=== PATIENT | male | born 1950 | race Caucasian/White ===

== ENCOUNTER 2019-09-29 08:34 | Emergency (ER) | payer OTHER ==
--- NOTE | 2019-09-29 09:23 | EDM.PDOC ---
ED HPI GENERAL MEDICAL PROBLEM - General Chief Complaint: Cardiovascular Problem Stated Complaint: SOB AND SWELLING OF FEEL AND LEGS Time Seen by Provider: 09/29/19 08:46 Source of Information: Reports: Patient, RN Notes Reviewed - History of Present Illness INITIAL COMMENTS - FREE TEXT/NARRATIVE: 69 yr old male with dyspnea, fluid retention. He has had worsening shortness of breath the last few weeks and especially the last few days. Has not seen his regular surgical training specialist for a year due to covid and canceled appointments. He does have hx of chronic renal failure, GFR only 13 when tested at clinic 6 wks ago. No fever, chills, chest pain. Not coughing any more than usual. Hx chronic a fib. on coumadin. - Related Data Allergies Allergy/AdvReac Type Severity Reaction Status Date / Time atorvastatin Allergy Severe Rash Verified 09/29/19 08:47 cyclosporine Allergy Severe Rash Verified 09/29/19 08:47 lisinopril Allergy Severe Cough Verified 09/29/19 08:47 rosuvastatin [From Crestor] Allergy Severe Rash Verified 09/29/19 08:47 Home Meds: Home Meds Allopurinol [Zyloprim] 100 mg PO DAILY 09/29/19 [History] Isosorbide Mononitrate [Imdur] 30 mg PO DAILY 09/29/19 [History] Losartan [Cozaar] 12.5 mg PO DAILY 09/29/19 [History] [place]-3 Fatty Acids [[place]-3] 1,200 mg PO BID 09/29/19 [History] RX: Furosemide 40 mg PO BID 09/29/19 [History] RX: Metoprolol Succinate 50 mg PO DAILY 09/29/19 [History] RX: Warfarin Sodium 5 mg PO DAILY 09/29/19 [History] RX: calcitrioL [Calcitriol] 0.25 mcg PO DAILY 09/29/19 [History] RX: hydrALAZINE [Apresoline] 25 mg PO TID 09/29/19 [History] Terazosin [Hytrin] 5 mg PO DAILY 09/29/19 [History] guaiFENesin [Guaifenesin] 600 mg PO BID 09/29/19 [History] Social & Family History - Tobacco Use Smoking Status *Q: Current Every Day Smoker Years of Tobacco use: 60 Packs/Tins Daily: 0.2 - Recreational Drug Use Recreational Drug Use: No ED ROS GENERAL - Review of Systems Review Of Systems: See Below Constitutional: Denies: Fever, Chills, Diaphoresis HEENT: Reports: No Symptoms Respiratory: Reports: Shortness of Breath. Denies: Pleuritic Chest Pain, Cough Cardiovascular: Denies: Chest Pain GI/Abdominal: Reports: Decreased Appetite. Denies: Abdominal Pain, Nausea, Vomiting Musculoskeletal: Denies: Shoulder Pain, Arm Pain Skin: Denies: Rash Neurological: Reports: Dizziness, Difficulty Walking, Weakness (mild generalized. ). Denies: Trouble Speaking ED EXAM, GENERAL - Physical Exam Exam: See Below General Appearance: Alert, No Apparent Distress (at rest) Eye Exam: Bilateral Eye: PERRL Throat/Mouth: Normal Inspection Respiratory/Chest: Respiratory Distress (mild tachypnea), Rales (mild L base). No: Rhonchi, Wheezing Cardiovascular: Irregularly Irregular GI/Abdominal: Soft, Non-Tender Extremities: Pedal Edema (moderate bilat) Neurological: Alert, Oriented, No Motor/Sensory Deficits Skin Exam: Warm, Dry, Normal Color Course - Vital Signs Last Recorded V/S: Last Vital Signs Temp 98.7 F 09/29/19 08:43 Pulse 68 09/29/19 08:43 Resp 21 H 09/29/19 08:43 BP 175/114 H 09/29/19 08:43 Pulse Ox 91 L 09/29/19 08:43 - Orders/Labs/Meds Orders: Active Orders 24 hr Category Date Time Status EKG 12 Lead [EK] Stat Ther 09/29/19 08:54 Ordered Labs: Laboratory Tests 09/29/19 09/29/19 09/29/19 Range/Units 09:15 09:15 09:15 WBC 6.81 (4.23-9.07) K/mm3 RBC 3.99 L (4.63-6.08) M/mm3 Hgb 12.5 L (13.7-17.5) gm/dl Hct 38.1 L (40.1-51.0) % MCV 95.5 H (79.0-92.2) fl MCH 31.3 (25.7-32.2) pg MCHC 32.8 (32.2-35.5) g/dl RDW Std Deviation 48.6 H (35.1-43.9) fL Plt Count 67 L (163-337) K/mm3 MPV 11.7 (9.4-12.3) fl Neut % (Auto) 74.0 H (34.0-67.9) % Lymph % (Auto) 11.2 L (21.8-53.1) % [place] % (Auto) 11.3 (5.3-12.2) % Eos % (Auto) 2.8 (0.8-7.0) Baso % (Auto) 0.6 (0.1-1.2) % Neut # (Auto) 5.04 (1.78-5.38) K/mm3 Lymph # (Auto) 0.76 L (1.32-3.57) K/mm3 [place] # (Auto) 0.77 (0.30-0.82) K/mm3 Eos # (Auto) 0.19 (0.04-0.54) K/mm3 Baso # (Auto) 0.04 (0.01-0.08) K/mm3 Manual Slide Review Abnormal smear PT (9.7-12.0) SECONDS INR Sodium 137 (136-145) mEq/L Potassium 3.5 (3.5-5.1) mEq/L Chloride 101 (98-107) mEq/L Carbon Dioxide 28 (21-32) mEq/L Anion Gap 11.5 (5-15) BUN 37 H (7-18) mg/dL Creatinine 4.3 H (0.7-1.3) mg/dL Est Cr Clr Drug Dosing 15.76 mL/min Estimated GFR (MDRD) 14 (>60) mL/min BUN/Creatinine Ratio 8.6 L (14-18) Glucose 102 (83-115) mg/dL Calcium 10.8 H (8.5-10.1) mg/dL Total Bilirubin 0.9 (0.2-1.0) mg/dL AST 25 (15-37) U/L ALT 28 (16-63) U/L Alkaline Phosphatase 152 H (46-116) U/L NT-Pro-B Natriuret Pep > 72502 H (0-125) pg/mL Total Protein 5.8 L (6.4-8.2) g/dl Albumin 2.6 L (3.4-5.0) g/dl Globulin 3.2 gm/dL Albumin/Globulin Ratio 0.8 L (1-2) SARS Virus RNA (PCR) (NEGATIVE) 09/29/19 09/29/19 Range/Units 09:15 10:00 WBC (4.23-9.07) K/mm3 RBC (4.63-6.08) M/mm3 Hgb (13.7-17.5) gm/dl Hct (40.1-51.0) % MCV (79.0-92.2) fl MCH (25.7-32.2) pg MCHC (32.2-35.5) g/dl RDW Std Deviation (35.1-43.9) fL Plt Count (163-337) K/mm3 MPV (9.4-12.3) fl Neut % (Auto) (34.0-67.9) % Lymph % (Auto) (21.8-53.1) % [place] % (Auto) (5.3-12.2) % Eos % (Auto) (0.8-7.0) Baso % (Auto) (0.1-1.2) % Neut # (Auto) (1.78-5.38) K/mm3 Lymph # (Auto) (1.32-3.57) K/mm3 [place] # (Auto) (0.30-0.82) K/mm3 Eos # (Auto) (0.04-0.54) K/mm3 Baso # (Auto) (0.01-0.08) K/mm3 Manual Slide Review PT 29.0 H (9.7-12.0) SECONDS INR 2.76 Sodium (136-145) mEq/L Potassium (3.5-5.1) mEq/L Chloride (98-107) mEq/L Carbon Dioxide (21-32) mEq/L Anion Gap (5-15) BUN (7-18) mg/dL Creatinine (0.7-1.3) mg/dL Est Cr Clr Drug Dosing mL/min Estimated GFR (MDRD) (>60) mL/min BUN/Creatinine Ratio (14-18) Glucose (83-115) mg/dL Calcium (8.5-10.1) mg/dL Total Bilirubin (0.2-1.0) mg/dL AST (15-37) U/L ALT (16-63) U/L Alkaline Phosphatase (46-116) U/L NT-Pro-B Natriuret Pep (0-125) pg/mL Total Protein (6.4-8.2) g/dl Albumin (3.4-5.0) g/dl Globulin gm/dL Albumin/Globulin Ratio (1-2) SARS Virus RNA (PCR) Negative (NEGATIVE) - Re-Assessments/Exams Free Text/Narrative Re-Assessment/Exam: 09/29/19 11:06. He has marked pul congestion on CXR, plus 2 to plus 3 peripheral leg edema, a lot of fluid retention with Creatnine today of 4.3, eGFR 14. Daughter did request transfer to [place] initially but they are on full diversion with ED waiting list so have made arrangements for transfer to [facility], direct admit for Hospitalist Dr Brand accepting provider. He will go by ground ambulance. Departure - Departure Time of Disposition: 10:40 Disposition: DC/Tfer to [facility] 02 Reason for Transfer *Q: Other Condition: Serious Clinical Impression: Pleural effusion, A-fib Renal failure Qualifiers: Acute renal failure type: unspecified Chronic kidney disease stage: unspecified stage Congestive heart failure Qualifiers: Heart failure type: combined systolic and diastolic Referrals: PCP,Not In Area [Primary Care Provider] - Forms: ED Department Discharge Sepsis Event Note (ED) - Evaluation Sepsis Screening Result: No Definite Risk - Focused Exam Vital Signs: Vital Signs Temp Pulse Resp BP Pulse Ox 09/29/19 08:43 98.7 F 68 21 H 175/114 H 91 L - My Orders Last 24 Hours: My Active Orders 09/29/19 08:54 EKG 12 Lead [EK] Stat - Assessment/Plan Last 24 Hours: My Active Orders 09/29/19 08:54 EKG 12 Lead [EK] Stat
--- NOTE | 2019-09-29 10:26 | CR ---
Chest: Portable view of the chest was obtained. Comparison: Previous chest x-ray of 03/13/12. Moderately large right-sided pleural effusion with adjacent atelectasis. Left lung is clear. Heart size is felt to be slightly enlarged. Upper mediastinum shows no acute finding. Bony structures are grossly intact. Impression: 1. Moderately large right-sided pleural effusion with adjacent right sided atelectasis. Diagnostic code #3 This report was dictated in MDT
== END 2019-09-29 12:33 ==
LOC: JD.ED 08:34
DX: I50.40 Unspecified combined systolic (congestive) and diastolic (congestive) heart failure (principal); N19 Unspecified kidney failure; I48.91 Unspecified atrial fibrillation; J90 Pleural effusion, not elsewhere classified; F17.210 Nicotine dependence, cigarettes, uncomplicated; Z20.828 Contact with and (suspected) exposure to other viral communicable diseases; Z88.8 Allergy status to other drugs, medicaments and biological substances; Z79.899 Other long term (current) drug therapy; Z79.01 Long term (current) use of anticoagulants
CPT/HCPCS: 36415; 71045; 71045-26; 80053; 83880; 85025; 85610; 93005; 93010; 99284; 99285-25; U0002

== ENCOUNTER 2020-06-04 02:33 | Emergency (ER) | payer SELFPAY ==
--- NOTE | 2020-06-04 04:22 | EDM.PDOC ---
ED HPI GENERAL MEDICAL PROBLEM - General Chief Complaint: Upper Extremity Injury/Pain Stated Complaint: LEFT ARM ISSUES DIALYSIS PT Time Seen by Provider: 06/04/20 03:58 Source of Information: Reports: Patient, Family History Limitations: Reports: No Limitations - History of Present Illness INITIAL COMMENTS - FREE TEXT/NARRATIVE: This is a 70-year-old male. About 3 weeks ago he had a shunt placed in his left upper arm. Apparently he awoke this morning and noted that the shunt was very swollen and he was concerned that he might have a blood clot. When he felt the shunt making a vibrating sensation then he thought this was incorrect so he comes to the clinic for evaluation. Since he got here he says the shunt has reduced back down to normal size. He denies any other acute symptoms. He is a stage III kidney insufficiency and he has dialysis 3 times a week and to have a port in his right anterior chest. He denies any fever or chills he denies any other acute symptoms. Generalized Pain Score (Numeric/FACES): 2 - Related Data Allergies Allergy/AdvReac Type Severity Reaction Status Date / Time atorvastatin Allergy Severe Rash Verified 06/04/20 02:54 cyclosporine Allergy Severe Rash Verified 06/04/20 02:54 lisinopril Allergy Severe Cough Verified 06/04/20 02:54 rosuvastatin [From Crestor] Allergy Severe Rash Verified 06/04/20 02:54 Home Meds: Home Meds Furosemide 40 mg PO BID 09/29/19 [History] Isosorbide Mononitrate [Imdur] 30 mg PO DAILY 09/29/19 [History] Losartan [Cozaar] 12.5 mg PO DAILY 09/29/19 [History] Metoprolol Succinate 50 mg PO DAILY 09/29/19 [History] [place]-3 Fatty Acids [[place]-3] 1,200 mg PO BID 09/29/19 [History] Terazosin [Hytrin] 5 mg PO DAILY 09/29/19 [History] Warfarin Sodium 5 mg PO DAILY 09/29/19 [History] allopurinoL [Zyloprim] 100 mg PO DAILY 09/29/19 [History] calcitrioL [Calcitriol] 0.25 mcg PO DAILY 09/29/19 [History] hydrALAZINE [Apresoline] 25 mg PO TID 09/29/19 [History] Past Medical History Cardiovascular History: Reports: Afib, Other (See Below) Other Cardiovascular History: "leaky valves" Genitourinary History: Reports: Acute Renal Failure, Dialysis - Infectious Disease History Infectious Disease History: Reports: Measles Social & Family History - Family History Family Medical History: No Pertinent Family History - Tobacco Use Tobacco Use Status *Q: Former Tobacco User Used Tobacco, but Quit: Yes Month/Year Tobacco Last Used: 12/2019 - Caffeine Use Caffeine Use: Reports: Coffee, Soda Caffeine Use Comment: occasionally - Recreational Drug Use Recreational Drug Use: No Review of Systems - Review of Systems Review Of Systems: See Below Constitutional: Denies: Fever Eyes: Reports: No Symptoms Ears: Reports: No Symptoms Nose: Reports: No Symptoms Mouth/Throat: Reports: No Symptoms Respiratory: Denies: Shortness of Breath, Cough Cardiovascular: Denies: Chest Pain GI/Abdominal: Denies: Abdominal Pain Genitourinary: Reports: No Symptoms Musculoskeletal: Reports: Other (Generalized soreness and achiness) Skin: Reports: Other (Shunt in the left upper arm) Neurological: Reports: No Symptoms Psychiatric: Reports: No Symptoms ED EXAM, GENERAL - Physical Exam Exam: See Below Exam Limited By: No Limitations General Appearance: Alert, WD/WN, No Apparent Distress Eye Exam: Bilateral Eye: Normal Inspection Ears: Normal External Exam Throat/Mouth: Normal Lips, Normal Voice, No Airway Compromise Head: Normocephalic Neck: Supple Respiratory/Chest: No Respiratory Distress Back Exam: Decreased Range of Motion Extremities: Normal Range of Motion, Other (The shunt in his left upper arm appears to be normal with good healing and good healing of the incision, you can feel a thrill in the shunt.) Neurological: Alert, Oriented Psychiatric: Normal Affect, Normal Mood Skin Exam: Warm, Dry Course - Vital Signs Last Recorded V/S: Last Vital Signs Temp 98.1 F 06/04/20 02:49 Pulse 62 06/04/20 02:49 Resp 20 06/04/20 02:49 BP 135/63 06/04/20 02:49 Pulse Ox 93 L 06/04/20 02:49 - Re-Assessments/Exams Free Text/Narrative Re-Assessment/Exam: 06/04/20 04:20 Reassure the patient and the family that the thrill there feeling is normal and you want to be able to feel that in his shunt and if you do not feel the thrill than that is usually when he gets clotted up so his shunt is functioning. They are satisfied with this. Departure - Departure Time of Disposition: 04:20 Disposition: Home, Self-Care 01 Condition: Fair Clinical Impression: Presence of arteriovenous dialysis shunt - Discharge Information *PRESCRIPTION DRUG MONITORING PROGRAM REVIEWED*: Not Applicable *COPY OF PRESCRIPTION DRUG MONITORING REPORT IN PATIENT GREG: Not Applicable Referrals: Kervin Corcoran MD [Primary Care Provider] - Additional Instructions: Continue with your dialysis 3 times a week as before, check with your doctor regarding this shunt this coming week, if you do not feel that thrill or tremor in the shunt when you put your fingers on it gently then you need to be seen by your doctor and as long as you feel that little tremor or thrill then your shunt is functioning properly, return to the ER if needed Sepsis Event Note (ED) - Evaluation Sepsis Screening Result: No Definite Risk - Focused Exam Vital Signs: Vital Signs Temp Pulse Resp BP Pulse Ox 06/04/20 02:49 98.1 F 62 20 135/63 93 L
== END 2020-06-04 04:32 | disposition home or self-care (01) ==
LOC: JD.ED 02:33
DX: Z45.2 Encounter for adjustment and management of vascular access device (principal); I48.91 Unspecified atrial fibrillation; Z79.01 Long term (current) use of anticoagulants; Z79.899 Other long term (current) drug therapy; Z87.891 Personal history of nicotine dependence; Z88.8 Allergy status to other drugs, medicaments and biological substances
CPT/HCPCS: 99282; 99283

== ENCOUNTER 2020-07-12 12:11 | Emergency (ER) | payer OTHER ==
--- NOTE | 2020-07-12 12:24 | EDM.PDOC ---
ED HPI GENERAL MEDICAL PROBLEM - General Chief Complaint: General Stated Complaint: [facility] Time Seen by Provider: 07/12/20 12:22 - History of Present Illness INITIAL COMMENTS - FREE TEXT/NARRATIVE: 70-year-old male presents the emergency room with poor appetite no intake other than a little bit of soup last night. Home health nurse thought his blood pressure was too low to continue watch his any longer. is concerned the patient is dehydrated. Patient has end-stage renal disease he is on routine hemodialysis. He really does not have any pain he is just not eating or drinking is awfully weak at this point. Patient has dialysis 3 times a week had a yesterday and is scheduled again to have it tomorrow. He has not had any fevers or chills just is tired and lethargic. Abdomen Pain Score (Numeric/FACES): 4 - Related Data Allergies Allergy/AdvReac Type Severity Reaction Status Date / Time atorvastatin Allergy Intermediate Rash Verified 07/12/20 15:06 cyclosporine Allergy Intermediate Rash Verified 07/12/20 15:06 rosuvastatin [From Crestor] Allergy Intermediate Rash Verified 07/12/20 15:06 lisinopril AdvReac Mild Cough Verified 07/12/20 15:06 Home Meds: Home Meds Furosemide 40 mg PO BID 09/29/19 [History] Metoprolol Succinate 12.5 mg PO DAILY 09/29/19 [History] [place]-3 Fatty Acids [[place]-3] 1,200 mg PO BID 09/29/19 [History] Warfarin Sodium 2 mg PO ASDIRECTED 09/29/19 [History] allopurinoL [Zyloprim] 100 mg PO DAILY 09/29/19 [History] calcitrioL [Calcitriol] 0.25 mcg PO DAILY 09/29/19 [History] Acetaminophen [Tylenol] 650 mg PO Q6H PRN 07/12/20 [History] Amiodarone [Cordarone] 200 mg PO DAILY 07/12/20 [History] Aspirin [Aspirin EC] 81 mg PO DAILY 07/12/20 [History] Biotin/FA/Vit C/Vit B Complex [Nephrocaps] 1 mg PO DAILY 07/12/20 [History] Bumetanide [Bumex] 2 mg PO DAILY 07/12/20 [History] Calcium Acetate 667 mg PO TID 07/12/20 [History] Calcium Carbonate 500 mg PO Q4H PRN 07/12/20 [History] Cholecalciferol (Vitamin D3) [Vitamin D3] 25 mcg PO MOWEFR 07/12/20 [History] Melatonin 10 mg PO BEDTIME 07/12/20 [History] Midodrine 20 mg PO TUTHSA 07/12/20 [History] Pravastatin [Pravachol] 40 mg PO BEDTIME 07/12/20 [History] Sertraline [Zoloft] 100 mg PO DAILY 07/12/20 [History] Tamsulosin HCl 0.4 mg PO DAILY 07/12/20 [History] Warfarin [Coumadin] 1 mg PO ASDIRECTED 07/12/20 [History] ondansetron HCL [Zofran] 4 mg PO Q4H PRN 07/12/20 [History] rOPINIRole [Requip] 1 mg PO BEDTIME 07/12/20 [History] Past Medical History Cardiovascular History: Reports: Afib, Other (See Below) Other Cardiovascular History: "leaky valves" Genitourinary History: Reports: Acute Renal Failure, Dialysis - Infectious Disease History Infectious Disease History: Reports: Measles Social & Family History - Family History Family Medical History: No Pertinent Family History - Caffeine Use Caffeine Use: Reports: Coffee, Soda Caffeine Use Comment: occasionally ED ROS GENERAL - Review of Systems Review Of Systems: See Below Constitutional: Denies: Fever, Chills HEENT: Reports: No Symptoms Respiratory: Reports: No Symptoms Cardiovascular: Reports: No Symptoms GI/Abdominal: Reports: No Symptoms : Reports: Other (He does not make any urine) Hematologic/Lymphatic: Reports: Easy Bruising ED EXAM, GENERAL - Physical Exam Exam: See Below Exam Limited By: No Limitations General Appearance: Lethargic (He will wake up and answer questions appropriately but not for very long) Ears: Normal External Exam, Normal Canal, Hearing Grossly Normal, Normal TMs Nose: Normal Inspection, Normal Mucosa, No Blood Throat/Mouth: Normal Lips, Normal Oropharynx, Other (Semidry mucosa). No: Normal Teeth (He does not have dentures in place at this time) Head: Atraumatic, Normocephalic Neck: Normal Inspection, Supple, Non-Tender, Full Range of Motion. No: Lymph adenopathy (L), Lymphadenopathy (R) Respiratory/Chest: No Respiratory Distress, Lungs Clear, Normal Breath Sounds Cardiovascular: No Murmur, Irregularly Irregular GI/Abdominal: Normal Bowel Sounds, Soft, Non-Tender, Other (Reexamine his abdomen after reviewing his labs and he does not have any abdominal pain). No: Guarding, Rigid, Rebound, Tender Extremities: Other (Chronic edema this is normal for him skin is dry) Skin Exam: Dry #1 Interpretation EKG Date: 07/12/20 Rhythm: A-Fib (Probable A. fib) [place]: Normal P-Wave: Absent QRS: Other (Low voltage extremity leads) ST-T: Other (Verted T waves lateral leads) QT: Normal Comparison: No Change (No significant change from 09/29/2019 that study had 2 PVCs the study does not show PVCs) EKG Interpretation Comments: Abnormal EKG Course - Vital Signs Last Recorded V/S: Last Vital Signs Temp 36.2 C 07/12/20 12:18 Pulse 64 07/12/20 12:18 Resp 14 07/12/20 12:18 BP 71/46 L 07/12/20 12:18 Pulse Ox 69 L 07/12/20 12:18 - Orders/Labs/Meds Orders: Active Orders 24 hr Category Date Time Status EKG Documentation Completion [RC] STAT Care 07/12/20 12:41 Active CULTURE BLOOD [BC] Stat Lab 07/12/20 13:01 Received CULTURE BLOOD [BC] Stat Lab 07/12/20 13:15 Received REFLEX LACTIC ACID YES OR NO [CHEM] Routine Lab 07/12/20 14:07 Received Sodium Chloride 0.9% [Normal Saline] 1,000 ml Med 07/12/20 14:30 Active IV ASDIRECTED Blood Culture x2 Reflex Set [OM.PC] Stat Oth 07/12/20 12:41 Ordered Medication Orders Sodium Chloride (Normal Saline) 1,000 mls @ 100 mls/hr IV ASDIRECTED SANDI Last Admin: 07/12/20 14:32 Dose: 100 mls/hr Documented by: SHENA Labs: Laboratory Tests 07/12/20 07/12/20 07/12/20 Range/Units 13:01 13:01 13:01 WBC 9.87 H (4.23-9.07) K/mm3 RBC 4.12 L (4.63-6.08) M/mm3 Hgb 11.9 L (13.7-17.5) gm/dl Hct 39.8 L (40.1-51.0) % MCV 96.6 H (79.0-92.2) fl MCH 28.9 (25.7-32.2) pg MCHC 29.9 L (32.2-35.5) g/dl RDW Std Deviation 89.4 H (35.1-43.9) fL Plt Count 74 L (163-337) K/mm3 MPV 11.6 (9.4-12.3) fl Neut % (Auto) 77.2 H (34.0-67.9) % Lymph % (Auto) 9.0 L (21.8-53.1) % [place] % (Auto) 11.9 (5.3-12.2) % Eos % (Auto) 0.1 L (0.8-7.0) Baso % (Auto) 0.2 (0.1-1.2) % Neut # (Auto) 7.62 H (1.78-5.38) K/mm3 Lymph # (Auto) 0.89 L (1.32-3.57) K/mm3 [place] # (Auto) 1.17 H (0.30-0.82) K/mm3 Eos # (Auto) 0.01 L (0.04-0.54) K/mm3 Baso # (Auto) 0.02 (0.01-0.08) K/mm3 Manual Slide Review Abnormal smear PT (9.7-12.0) SECONDS INR Sodium 139 (136-145) mEq/L Potassium 4.2 (3.5-5.1) mEq/L Chloride 99 (98-107) mEq/L Carbon Dioxide 24 (21-32) mEq/L Anion Gap 20.2 H (5-15) BUN 35 H (7-18) mg/dL Creatinine 4.2 H (0.7-1.3) mg/dL Est Cr Clr Drug Dosing 16.42 mL/min Estimated GFR (MDRD) 14 (>60) mL/min BUN/Creatinine Ratio 8.3 L (14-18) Glucose 76 (70-99) mg/dL Lactic Acid (0.4-2.0) mmol/L Calcium 8.6 D (8.5-10.1) mg/dL Total Bilirubin 4.2 H (0.2-1.0) mg/dL AST 1122 H (15-37) U/L ALT 849 H (16-63) U/L Alkaline Phosphatase 401 H (46-116) U/L Troponin I 0.169 H* (0.00-0.056) ng/mL NT-Pro-B Natriuret Pep 00555 H (0-125) pg/mL Total Protein 5.8 L (6.4-8.2) g/dl Albumin 2.8 L (3.4-5.0) g/dl Globulin 3.0 gm/dL Albumin/Globulin Ratio 0.9 L (1-2) SARS-CoV-2 RNA (MANUEL) (NEGATIVE) 07/12/20 07/12/20 07/12/20 Range/Units 13:01 13:23 14:35 WBC (4.23-9.07) K/mm3 RBC (4.63-6.08) M/mm3 Hgb (13.7-17.5) gm/dl Hct (40.1-51.0) % MCV (79.0-92.2) fl MCH (25.7-32.2) pg MCHC (32.2-35.5) g/dl RDW Std Deviation (35.1-43.9) fL Plt Count (163-337) K/mm3 MPV (9.4-12.3) fl Neut % (Auto) (34.0-67.9) % Lymph % (Auto) (21.8-53.1) % [place] % (Auto) (5.3-12.2) % Eos % (Auto) (0.8-7.0) Baso % (Auto) (0.1-1.2) % Neut # (Auto) (1.78-5.38) K/mm3 Lymph # (Auto) (1.32-3.57) K/mm3 [place] # (Auto) (0.30-0.82) K/mm3 Eos # (Auto) (0.04-0.54) K/mm3 Baso # (Auto) (0.01-0.08) K/mm3 Manual Slide Review PT 27.7 H (9.7-12.0) SECONDS INR 2.64 Sodium (136-145) mEq/L Potassium (3.5-5.1) mEq/L Chloride (98-107) mEq/L Carbon Dioxide (21-32) mEq/L Anion Gap (5-15) BUN (7-18) mg/dL Creatinine (0.7-1.3) mg/dL Est Cr Clr Drug Dosing mL/min Estimated GFR (MDRD) (>60) mL/min BUN/Creatinine Ratio (14-18) Glucose (70-99) mg/dL Lactic Acid 6.6 H* (0.4-2.0) mmol/L Calcium (8.5-10.1) mg/dL Total Bilirubin (0.2-1.0) mg/dL AST (15-37) U/L ALT (16-63) U/L Alkaline Phosphatase (46-116) U/L Troponin I (0.00-0.056) ng/mL NT-Pro-B Natriuret Pep (0-125) pg/mL Total Protein (6.4-8.2) g/dl Albumin (3.4-5.0) g/dl Globulin gm/dL Albumin/Globulin Ratio (1-2) SARS-CoV-2 RNA (MANUEL) Negative (NEGATIVE) Meds: Medications Generic Name Dose Route Start Last Admin Trade Name Freq PRN Reason Stop Dose Admin Sodium Chloride 1,000 mls @ 100 mls/hr 07/12/20 14:30 07/12/20 14:32 Normal Saline IV 100 mls/hr ASDIRECTED SANDI Administration Discontinued Medications Generic Name Dose Route Start Last Admin Trade Name Freq PRN Reason Stop Dose Admin Sodium Chloride 500 mls @ 500 mls/hr 07/12/20 14:41 Normal Saline IV 07/12/20 15:40 .BOLUS ONE Cefepime HCl 1 gm/ Premix 50 mls @ 100 mls/hr 07/12/20 14:45 07/12/20 15:18 IV 07/12/20 15:14 100 mls/hr ONETIME ONE Administration Vancomycin HCl 1 gm/ Sodium 250 mls @ 250 mls/hr 07/12/20 14:45 Chloride IV 07/12/20 15:44 ONETIME ONE - Re-Assessments/Exams Free Text/Narrative Re-Assessment/Exam: 07/12/20 15:01 Case and labs were reviewed with Dr. Hooper, on-call home attendant and the patient's home attendant at [facility] he recommends starting antibiotics 1 g of vancomycin 1 g of cefepime and continuing the fluids. Case was then reviewed with Dr. Mckeon, the hospitalist who will kindly accept the patient however they would like for us to check a abdominal pelvic CT with IV only contrast. This has been ordered 07/12/20 15:[address] shows pericardial effusion as well as bilateral pleural effusions. Liver looks normal no mention of gallbladder wall thickening he has partially calcified gallstones. He has some ascites. Chest x-ray interpretation shows possible left-sided atelectasis versus minimal pneumonia I did not appreciate that on my review the x-ray initially. All this information is relayed to Dr. Mckeon and 1 call at [place] Departure - Departure Time of Disposition: 14:44 Disposition: DC/Tfer to [facility] 02 Clinical Impression: Dehydration, Chronic renal failure, Sepsis associated hypotension - Discharge Information Referrals: Kervin Corcoran MD [Primary Care Provider] - Forms: ED Department Discharge Sepsis Event Note (ED) - Evaluation Sepsis Screening Result: No Definite Risk - Focused Exam Vital Signs: Vital Signs Temp Pulse Resp BP Pulse Ox 07/12/20 12:18 36.2 C 64 14 71/46 L 69 L - My Orders Last 24 Hours: My Active Orders 07/12/20 12:41 EKG Documentation Completion [RC] STAT Blood Culture x2 Reflex Set [OM.PC] Stat 07/12/20 13:01 CULTURE BLOOD [BC] Stat 07/12/20 13:15 CULTURE BLOOD [BC] Stat 07/12/20 14:07 REFLEX LACTIC ACID YES OR NO [CHEM] Routine 07/12/20 14:30 Sodium Chloride 0.9% [Normal Saline] 1,000 ml IV ASDIRECTED - Assessment/Plan Last 24 Hours: My Active Orders 07/12/20 12:41 EKG Documentation Completion [RC] STAT Blood Culture x2 Reflex Set [OM.PC] Stat 07/12/20 13:01 CULTURE BLOOD [BC] Stat 07/12/20 13:15 CULTURE BLOOD [BC] Stat 07/12/20 14:07 REFLEX LACTIC ACID YES OR NO [CHEM] Routine 07/12/20 14:30 Sodium Chloride 0.9% [Normal Saline] 1,000 ml IV ASDIRECTED
[2020-07-12] MEDS ORDERED: Sodium Chloride 0.9% 1,000 ML IV SCH (14:30)
[2020-07-12] MEDS ORDERED: Sodium Chloride 0.9% 500 ML IV ONE (14:41)
[2020-07-12] MEDS ORDERED: Cefepime 1 GM in Premix Bag 1 BAG IV ONE (14:45)
--- NOTE | 2020-07-12 15:28 | CR ---
Chest: Portable view of the chest was obtained. Comparison: Prior chest x-ray of 09/29/19. Heart is enlarged which could be due to cardiomegaly or pericardial effusion. Small right-sided pleural effusion is seen. Atelectasis is seen within the right lung base. Slight parenchymal density is noted within the left mid lung. Lungs otherwise are clear. Right-sided infusion catheter is noted. Bony structures show nothing acute. Impression: 1. Heart is enlarged either due to cardiomegaly or pericardial effusion. 2. Small right-sided pleural effusion and atelectasis. 3. Slight parenchymal density within the left midlung either due to atelectasis or possibly minimal pneumonia. 4. Right-sided infusion catheter. Diagnostic code #3
--- NOTE | 2020-07-12 15:40 | CT ---
CT abdomen and pelvis Technique: Multiple axial sections were obtained from above the dome of the diaphragm inferiorly through the pubic symphysis. Intravenous contrast was utilized. No oral contrast has been given. Reconstructed coronal and sagittal images were obtained. Comparison: No prior abdomen or pelvic imaging is available Findings: Bilateral pleural effusions are seen which are small to moderate in size. Heart is enlarged with pericardial effusion. Coronary artery calcification is noted. Atelectasis is noted within both lung bases next to the pleural effusions. Liver contains no focal abnormality. Spleen size is normal. Gallbladder contains calcified gallstones. Minimal ascites is seen. Kidneys show cortical thinning. Abdominal aorta shows diffuse atherosclerotic change which continues into the branch vessels and iliac vessels. No retroperitoneal adenopathy is seen. No mesenteric abnormalities are seen. Two small fat-containing hernias are seen to the right of midline above the umbilicus. No pelvic mass or adenopathy is seen. No inflammatory change is seen. Appendix is felt to be visualized and normal in size. Bone window settings show scattered degenerative change throughout the spine. No acute osseous abnormality is appreciated. Diffuse body wall edema is seen asymmetrically more prominent on the right side. Impression: 1. Cardiomegaly with pericardial effusion. Bilateral pleural effusions are seen with adjacent atelectasis. Coronary artery calcification is also noted. 2. Minimal ascites is seen. 3. Partially calcified gallstones are present. 4. Two small fat-containing hernias are seen above the umbilicus and to the right of midline. 5. Diffuse body wall edema is seen asymmetrically more prominent on the right side. Diagnostic code #3
== END 2020-07-12 16:57 ==
LOC: JD.ED 12:11
DX: A41.9 Sepsis, unspecified organism (principal); I95.9 Hypotension, unspecified; N18.9 Chronic kidney disease, unspecified; E86.0 Dehydration; Z20.822 Contact with and (suspected) exposure to COVID-19; Z79.01 Long term (current) use of anticoagulants; Z79.899 Other long term (current) drug therapy; Z88.8 Allergy status to other drugs, medicaments and biological substances
CPT/HCPCS: 36415; 71045; 74177; 80053; 83605; 83880; 84484; 85025; 85610; 87040; 87635; 93005; 96365; 96367; 99285; J0692; J3370; J7030; J7050; 93010; 99284; U0002